=== PATIENT | female | born 1965 | race Caucasian/White ===

== ENCOUNTER → 2019-11-10 | Outpatient (CLI) | payer OTHER ==
[~2019-11-10] MED LIST: AMOXIL500 M1 PO; AVELOX400 MG PO; CLEOCIN HCL150 MG PO; CLEOCIN150 MG PO; Clotrimazole Tr10 MG PO; EXCEDRIN MIGRAI1 TA1 PO; FLEXERIL10 MG PO; LASIX20 MG PO; NASONEX0.05 MG/AC NS; PAXIL30 M1 PO; PAXIL40 MG PO; PERCOCET 325 MG1 TA5 PO; POTASSIMIN PO; PREVACID30 M1 PO; SINGULAIR10 MG PO; VENTOLIN0.09 MG/AC IH; VICODIN 5/500 505 MG PO; XANAX1 MG PO; ZOFRAN4 MG PO
[2019-11-10 16:13] LABS: BASO % 0.1 % (0.0-1.0); EOS # 0.1 10*3/uL (0.0-0.4); EOS % 1.1 % (1.0-4.0); HEMATOCRIT 40.5 % (37.0-47.0); LYMPH # 2.4 10*3/uL (1.3-4.4); LYMPH % 32.3 % (27.0-41.0); MEAN CELL VOLUME 89.6 fl (81.0-99.0); MEAN CORPUSCULAR HGB 29.6 pg (27.0-31.0); MEAN CORPUSCULAR HGB CONC 33.1 g/dl (33.0-37.0); MEAN PLATELET VOLUME 9.8 fl (9.6-12.3); MONO # 0.6 10*3/uL (0.1-1.0); MONO % 7.6 % (3.0-9.0); NEUT # 4.3 10*3/uL (2.3-7.9); NEUT % 58.4 % (47.0-73.0); PLATELET COUNT AUTOMATED 285 10*3/uL (130-400); RED BLOOD COUNT 4.52 10*6/uL (4.10-5.10); RED CELL DISTRI WIDTH 12.8 % (0-14.5); RETICULOCYTE % 2.41 % (0.50-2.50); WHITE BLOOD COUNT 7.4 10*3/uL (4.8-10.8)
[2019-11-10 16:14] LABS: BILIRUBIN NEGATIVE (NEGATIVE); CLARITY SL CLOUDY (CLEAR); COLOR YELLOW (YELLOW); GLUCOSE NEGATIVE (NEGATIVE); KETONE NEGATIVE (NEGATIVE)
[2019-11-10 16:15] LABS: BLOOD NEGATIVE (NEGATIVE); LEUKO ESTERASE NEGATIVE (NEGATIVE); NITRITE NEGATIVE (NEGATIVE); UROBILINOGEN 0.2 E.U./dl (0.2-1.0)
[2019-11-10 16:21] LABS: BACTERIA 2+; EPITHELIAL CELLS 21-30; MUCOUS 2+; WBC 21-30 wbc/hpf (0-5)
[2019-11-10 16:29] LABS: ALBUMIN 3.7 gm/dl (3.1-4.5); ALKALINE PHOSPHATASE 139 U/L (45-117); BUN 16 mg/dl (7-24); CHLORIDE 106 mmol/L (98-107); CHOLESTEROL 194 mg/dL (<200); CREATININE 0.91 mg/dL (0.55-1.02); GAMMA GLUTAMYL TRANSPEPTIDASE 74 U/L (5-55); HDL CHOLESTEROL 43 mg/dl (40-60); IRON 46 ug/dL (50-170); LDL CHOLESTEROL 118 mg/dL (9-159); POTASSIUM 3.9 mmol/L (3.5-5.1); SGOT/AST 40 IU/L (3-35); SGPT/ALT 83 U/L (12-78); SODIUM 139 mmol/L (136-145); TOTAL IRON BINDING CAPACITY 302 ug/dl (250-450); TOTAL PROTEIN 8.2 gm/dL (6.4-8.2); TRIGLYCERIDES 167 mg/dl (<150); VLDL CHOLESTEROL 33 mg/dL (6-40)
[2019-11-10 16:50] LABS: FERRITIN 124.7 ng/mL (10.0-291.0); VITAMIN D, 25-HYDROXY 38.9 ng/mL (30-100)
[2019-11-11 09:03] LABS: H PYLORI IGG AB 0.51 (0.00-0.79)
[2019-11-11 15:02] LABS: H.PYLORI IGM <9.0 units (0.0-8.9); H.PYLORI IgA <9.0 units (0.0-8.9)
== END | disposition home or self-care (01) ==
LOC: LAB 15:43
PROVIDERS: Family Medicine
DX: E78.5 Hyperlipidemia, unspecified (principal); R79.89 Other specified abnormal findings of blood chemistry; R53.83 Other fatigue; E55.9 Vitamin D deficiency, unspecified

== ENCOUNTER → 2020-07-06 | Outpatient (CLI) | payer OTHER | END | disposition home or self-care (01) | LOC: MAMMO 15:39 | PROVIDERS: ATTEND Physician Assistant | DX: Z12.31 Encounter for screening mammogram for malignant neoplasm of breast (principal); N64.89 Other specified disorders of breast ==

== ENCOUNTER → 2020-07-20 | Outpatient (CLI) | payer OTHER | END | disposition home or self-care (01) | LOC: MAMMO 13:16 | PROVIDERS: ATTEND Physician Assistant | DX: R92.8 Other abnormal and inconclusive findings on diagnostic imaging of breast (principal) ==

== ENCOUNTER → 2020-08-03 | Outpatient (CLI) | payer OTHER | END | disposition home or self-care (01) | LOC: US 09:13 | PROVIDERS: ATTEND Physician Assistant | DX: K82.8 Other specified diseases of gallbladder (principal); R74.8 Abnormal levels of other serum enzymes ==

== ENCOUNTER → 2021-07-12 | Outpatient (CLI) | payer OTHER ==
[2021-07-15 16:08] LABS: ACHR BLOCKING AB 20 % (0-25)
[2021-07-21 17:06] LABS: MUSCLE SPECIFIC KINASE MUSK AB <1.0 U/mL (.)
== END | disposition home or self-care (01) ==
LOC: LAB 14:25
PROVIDERS: ATTEND Ophthalmology
DX: G70.00 Myasthenia gravis without (acute) exacerbation (principal)

== ENCOUNTER → 2022-08-25 | Outpatient (CLI) | payer OTHER ==
[2022-08-25 12:45] LABS: BUN 12 mg/dl (9-23); CHLORIDE 100 mmol/L (98-107); POTASSIUM 3.7 mmol/L (3.4-5.1)
== END | disposition home or self-care (01) ==
LOC: LAB 11:14
PROVIDERS: Internal Medicine; ATTEND Physician Assistant
DX: U07.1 COVID-19 (principal)

== ENCOUNTER 2023-11-03 09:54 | Emergency (ER) | payer OTHER ==
[~2023-11-03] VITALS: Ht 165.1 cm; Wt 108.9 kg
[2023-11-03] MEDS ORDERED: METFORMIN850 MG PO (10:02)
[2023-11-03] MEDS ORDERED: ABILIFY10 MG PO (10:02)
[2023-11-03] MEDS ORDERED: 'KLONOPIN0.5 MG PO (10:02)
[2023-11-03] MEDS ORDERED: CRESTOR5 M1 PO (10:03)
[2023-11-03] MEDS ORDERED: AMITRIPTYLINE H10 M1 PO (10:03)
[2023-11-03 10:04] VITALS: BP 155/86
[2023-11-03] MEDS ORDERED: OMEPRAZOLE20 M3 PO (10:04)
[2023-11-03] MEDS ORDERED: ACETAMINOPHEN 325 MG TAB PO ONE (10:10)
[2023-11-03] MEDS ORDERED: IBUPROFEN 400 MG TAB PO ONE (10:10)
[2023-11-03] MEDS ORDERED: TYLENOL EXTRA500 MG PO (10:18)
[2023-11-03] MEDS ORDERED: Motrin,Rufen400 MG PO (10:18)
[2023-11-03] MEDS ORDERED: ASPERCREME LID1 EACH T (10:18)
== END 2023-11-03 11:11 | disposition home or self-care (01) ==
LOC: ED 09:54
DX: S29.9XXA Unspecified injury of thorax, initial encounter (principal); F32.A Depression, unspecified; K21.9 Gastro-esophageal reflux disease without esophagitis; Z88.1 Allergy status to other antibiotic agents; Z90.711 Acquired absence of uterus with remaining cervical stump; Z98.51 Tubal ligation status; Z98.890 Other specified postprocedural states; V49.9XXA Car occupant (driver) (passenger) injured in unspecified traffic accident, initial encounter; Y93.89 Activity, other specified; Y92.410 Unspecified street and highway as the place of occurrence of the external cause; Y99.8 Other external cause status

== ENCOUNTER → 2024-04-04 | Outpatient (CLI) | payer OTHER ==
[~2024-04-04] MED LIST changes: +'KLONOPIN0.5 MG PO; +ABILIFY10 MG PO; +AMITRIPTYLINE H10 M1 PO; +ASPERCREME LID1 EACH T; +CRESTOR5 M1 PO; +METFORMIN850 MG PO; +Motrin,Rufen400 MG PO; +OMEPRAZOLE20 M3 PO; +TYLENOL EXTRA500 MG PO
[2024-04-04 08:25] LABS: HEMATOCRIT 42.8 % (37.0-47.0); MEAN CELL VOLUME 86.3 fl (81.0-99.0); MEAN CORPUSCULAR HGB 27.8 pg (27.0-31.0); MEAN CORPUSCULAR HGB CONC 32.2 g/dl (33.0-37.0); MEAN PLATELET VOLUME 9.7 fl (9.6-12.3); RED BLOOD COUNT 4.96 10*6/uL (4.10-5.10); RED CELL DISTRI WIDTH 13.7 % (0-14.5); WHITE BLOOD COUNT 6.7 10*3/uL (4.8-10.8)
[2024-04-04 09:06] LABS: TOTAL PROTEIN 7.8 gm/dL (6.0-8.0)
[2024-04-07 18:05] LABS: FATS, NEUTRAL Normal (.); FATS, TOTAL Increased (.)
== END | disposition home or self-care (01) ==
LOC: LAB 07:56
PROVIDERS: Nurse Practitioner Family; ATTEND Internal Medicine Gastroenterology
DX: K76.0 Fatty (change of) liver, not elsewhere classified (principal); K63.5 Polyp of colon

== ENCOUNTER 2025-04-11 17:28 | Emergency (ER) | payer OTHER ==
[~2025-04-11] VITALS: Ht 165.1 cm; Wt 106.6 kg
[2025-04-11 17:39] VITALS: BP 143/81
[2025-04-11] MEDS ORDERED: Ondansetron Hydrochloride 4 MG TAB PO ONE (17:50)
[2025-04-11] MEDS ORDERED: Tdap Vaccine 0.5 ML SYR (Adult Vaccine) IM ONE (17:50)
[2025-04-11] MEDS ORDERED: Acetaminophen/Oxycodone 5 MG/325 MG TABLET PO ONE (17:50)
[2025-04-11] MEDS ORDERED: VIBRAMYCIN100 MG PO (20:34)
[2025-04-11] MEDS ORDERED: ENDOCET 5-3251 EACH PO (20:34)
== END 2025-04-11 20:49 | disposition home or self-care (01) ==
LOC: ED 17:28
DX: S62.347A Nondisplaced fracture of base of fifth metacarpal bone, left hand, initial encounter for closed fracture (principal); S02.40DA Maxillary fracture, left side, initial encounter for closed fracture; S05.12XA Contusion of eyeball and orbital tissues, left eye, initial encounter; Z79.899 Other long term (current) drug therapy; Z88.1 Allergy status to other antibiotic agents; Z88.8 Allergy status to other drugs, medicaments and biological substances; Z90.710 Acquired absence of both cervix and uterus; Z98.890 Other specified postprocedural states; W10.8XXA Fall (on) (from) other stairs and steps, initial encounter; Y93.01 Activity, walking, marching and hiking; Y92.89 Other specified places as the place of occurrence of the external cause; Y99.9 Unspecified external cause status

== ENCOUNTER → 2025-04-17 | Outpatient (CLI) | payer OTHER ==
[~2025-04-17] MED LIST changes: +ENDOCET 5-3251 EACH PO; +VIBRAMYCIN100 MG PO
== END | disposition home or self-care (01) ==
LOC: CT 16:52
PROVIDERS: ATTEND Orthopaedic Surgery
DX: S62.317A Displaced fracture of base of fifth metacarpal bone, left hand, initial encounter for closed fracture (principal); M25.532 Pain in left wrist; X58.XXXA Exposure to other specified factors, initial encounter; Y93.89 Activity, other specified; Y92.89 Other specified places as the place of occurrence of the external cause; Y99.8 Other external cause status